=== PATIENT | female | born 1955 | race Caucasian/White ===

== ENCOUNTER 2024-08-22 15:08 | Emergency (ER) | payer MEDICARE, SELFPAY ==
--- NOTE | ~2024-08-22 | XR_ITS ---
EXAMINATION: XR elbow RT min 3V DATE: 08/22/2024 15:40 INDICATION: Right elbow pain post fall TECHNIQUE: Anteroposterior, two oblique and lateral views of the right elbow were obtained. COMPARISON: None. FINDINGS: Alignment is normal. No fracture or joint effusion. Joint spaces are normal. Tiny enthesophyte at the tip of the olecranon. Soft tissues are unremarkable. IMPRESSION: 1. No elbow joint effusion or acute osseous abnormality. Reviewed, dictated and finalized at location A.
--- NOTE | ~2024-08-22 | XR_ITS ---
EXAMINATION: XR hand LT min 3V DATE: 08/22/2024 15:40 INDICATION: Pain at the left first and fifth metacarpals post fall TECHNIQUE: Posteroanterior, oblique and lateral views of the left hand were obtained. COMPARISON: None. FINDINGS: Diffuse osteopenia. Irregular cortical contour but with smooth intact appearing cortices at the neck of the fifth metacarpal suggesting an old healed fracture. No acute fractures identified. Polyarticul ar osteoarthritis, moderate severity at the wrist joint, mild to moderate severity at multiple metaca rpophalangeal and interphalangeal joints and mild at the midcarpal, triscaphe and first carpal metaca rpal joints. Soft tissues are unremarkable. IMPRESSION: 1. 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 No acute osseous abnorma lity. 2. Diffuse osteopenia. Reviewed, dictated and finalized at location A. IMPRESSION: 1. 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 No acute osseous abnormality. 2. Diffuse osteopenia.
--- NOTE | 2024-08-22 15:14 | ED.UPPEXIN ---
HPI - Extremity Injury (Upper) General Chief Complaint: Extremity Injury, Upper Stated Complaint: Injured Left hand/Right Elbow Time Seen by Provider: 08/22/24 15:13 Source: patient Mode of arrival: ambulatory Limitations: no limitations History of Present Illness HPI narrative: Kendra is a 69-year-old female patient presenting to the clinic today with complaints of a left hand injury/right elbow injury after falling in the kitchen this morning. She reports she has in to the left thumb, palm, and dorsal hand as well as to the right elbow. Abrasion noted on the palm. Mild swelling noted. Tetanus up today with the last 5 years per patient Related Data Allergies Allergy/AdvReac Type Severity Reaction Status Date / Time sulfamethoxazole Allergy Swelling Verified 08/22/24 15:33 [From of Sulfamethoxazole-Trimethoprim] Lip/Tongue/Throat trimethoprim Allergy Swelling Verified 08/22/24 15:33 [From of Sulfamethoxazole-Trimethoprim] Lip/Tongue/Throat Review of Systems Review of Systems: Pertinent positives per HPI. Patient denies any fever, chills, rash, headache, visual changes, dizziness, cough, runny nose, sore throat, shortness of breath, chest pain, palpitations, nausea, vomiting, diarrhea, constipation, abdominal pain, or any urinary issues. PMFSH Comments At the time of my signature, I reviewed and agree with the nursing past medical, surgical, social, and family history. There is no relevant family history pertinent to the patient complaint. Exam Narrative: General: Well-developed, well nourished, in no apparent distress Head: Normocephalic, atraumatic. Cardio: Regular rate and rhythm, s1 and s2 normal, no murmur appreciated. Resp: Clear to auscultation bilaterally, no rhonchi, rales, wheezing or rubs. Musculoskeletal: No deformity, tender to palpation over the left thumb, palm, and dorsal aspect of the left hand, very small abrasion noted to the left lower palm near ulnar aspect wrist-area measuring approximately 1 cm, unable to make a tight fist due to pain, mild swelling noted, pain to the right elbow with lifting and pulling, nontender to palpation, elbow with grossly normal range of motion, muscle strength strong and equal, peripheral pulse strong, no cyanosis, normal gait and station Course Course Emergency Course: Portions of this record may have been created with voice recognition software. Level of Care: Express Care Visit Vital Signs Vital signs: Vital Signs Temperature 36.9 C 08/22/24 15:20 Pulse Rate 89 08/22/24 15:20 Respiratory Rate 16 08/22/24 15:20 Blood Pressure 133/69 08/22/24 15:20 Pulse Oximetry 98 08/22/24 15:20 Temperature 36.9 C 08/22/24 15:20 Pulse Rate 89 08/22/24 15:20 Respiratory Rate 16 08/22/24 15:20 Blood Pressure 133/69 08/22/24 15:20 Pulse Oximetry 98 08/22/24 15:20 Vital signs reviewed MDM - Extremity Injury (Upper) MDM Narrative Medical decision making narrative: At the time of visit patient is resting comfortably on the exam table. Patient appears to be nontoxic. Diagnostics: X-ray negative for any sign of fracture or malalignment of the left hand or elbow. Plan: X-ray is negative for any sign of fracture or malalignment. I suspect patient has a left hand contusion with abrasion as well as a hand sprain and a right elbow sprain. Baljit wrap was given. Supportive measures were discussed with the patient and they voiced understanding discharge instructions and agrees to treatment plan. Return precautions reviewed Differential Diagnosis Differential diagnosis: Likely finger sprain, dislocation of finger, fracture of hand and other (Hand sprain, humerus fracture, forearm fracture, contusion, abrasion, laceration) Imaging Data Radiologist's impression: ITS Impressions Elbow X-Ray 08/22/24 15:44 IMPRESSION: 1. No elbow joint effusion or acute osseous abnormality. Hand X-Ray 08/22/24 15:46 IMPR
[2024-08-22 15:20] VITALS: BP 133/69; PULSE 89; RESP 16; TEMP 36.9; O2SAT 98
[2024-08-22] MEDS: ONDANSETRON HCL ODT 4 MG TABLET PO (16:11)
--- NOTE | 2024-08-22 16:12 | PC.NURSE ---
1601- attempt to give discharge paperwork to pt after wrapping hand in tyrese wrap and pt states that she feels like she needs to puke, and pt did appear slightly pale at that moment, emesis bag given to pt and pt did have small emesis. pt states that pain vs a greasy lunch to it being lining stamper the exam room, and pt felt better after the emesis. [employer] [facility] OFFICER notified.
== END 2024-08-22 16:15 | disposition home or self-care (01) ==
PROVIDERS: Emergency Provider Nurse Practitioner Family
DX: S60.512A Abrasion of left hand, initial encounter (principal); S60.222A Contusion of left hand, initial encounter; S63.92XA Sprain of unspecified part of left wrist and hand, initial encounter; S53.401A Unspecified sprain of right elbow, initial encounter; W19.XXXA Unspecified fall, initial encounter
CPT/HCPCS: 73080; 73130; 99204; A9270; G0463